=== PATIENT | male | born 1945 | race Caucasian/White ===

== ENCOUNTER 2021-06-29 10:52 | Inpatient (IN) | payer OTHER ==
[~2021-06-29] VITALS: Ht 175.3 cm; Wt 82.1 kg
--- NOTE | 2021-06-29 11:10 | NUR ---
PT BIB EMS FOR WEAKNESS X 1 WEEK. PT WAS FOUND BY EMS TO BE 88% ON ROOM AIR. PT PLACED ON 6 LITERS O2. FSGB PER EMS WAS 296. PT HAS DMII. PT RESTING IN [facility]. CONNECTED TO ALL MONITORS.
[2021-06-29] MEDS ORDERED: SODIUM CHLORIDE FLUSH 10ML SYR IVF ONE (11:30)
[2021-06-29 11:38] LABS: BASOPHILS % (AUTO) 0 % (0-1); EOSINOPHILS % (AUTO) 0 % (1-7); LYMPHOCYTES % (AUTO) 2 % (22-44); MEAN CORPUSCULAR HEMOGLOBIN 33.9 pg (27.5-34.5); MEAN CORPUSCULAR HGB CONC 33.5 g/dL (33.2-36.2); MONOCYTES % (AUTO) 4 % (2-9); NEUTROPHILS % (AUTO) 94 % (42-75); PLATELET COUNT 364 x10^3/uL (130-400); RED BLOOD COUNT 3.33 x10^6/uL (4.38-5.82); RED CELL DISTRIBUTION WIDTH 12.8 % (9.4-14.8)
[2021-06-29 11:45] LABS: ALANINE AMINOTRANSFERASE 114 U/L (12-78); ALBUMIN 2.8 g/dL (3.4-5.0); ANION GAP 15 mmol/L (5-15); CALCIUM 9.2 mg/dL (8.5-10.1); CHLORIDE 106 mmol/L (98-107)
[2021-06-29 11:49] LABS: ALKALINE PHOSPHATASE 102 U/L (45-117); BILIRUBIN,TOTAL 1.2 mg/dL (0.2-1.0); TOTAL PROTEIN 6.9 g/dL (6.4-8.2)
[2021-06-29] MEDS ORDERED: SODIUM CHLORIDE 0.9% 1,000ML IVBOLUS ONE (12:00)
[2021-06-29] MEDS ORDERED: PLEASE ENTER ALLERGIES MC SCH (12:00)
[2021-06-29] MEDS ORDERED: FUROSEMIDE 40 MG/4 ML IVPush ONE (12:30)
[2021-06-29] MEDS ORDERED: FUROSEMIDE 40 MG/4 ML ONE (12:57)
[2021-06-29] MEDS ORDERED: AZITHROMYCIN 500 MG in SODIUM CHLORIDE 0.9% 250 ML IVPB ONE (13:00)
[2021-06-29] MEDS ORDERED: CEFTRIAXONE 1,000 MG in DEXTROSE 5% 50 ML IVPB ONE (13:00)
[2021-06-29 13:12] LABS: PH, VENOUS 7.207 pH (7.320-7.420)
--- NOTE | 2021-06-29 13:13 | NUR ---
abx adm after blood cultures x 2 drawn. delay in abx adm due to lab having difficult time drawing blood
[2021-06-29 13:43] LABS: ACETONE, SERUM Negative (Negative)
[2021-06-29] MEDS ORDERED: SODIUM CHLORIDE FLUSH 10ML SYR IVF PRN (14:00)
[2021-06-29] MEDS ORDERED: ONDANSETRON ODT 4 MG PO PRN (14:30)
[2021-06-29] MEDS ORDERED: FUROSEMIDE 20 MG/2 ML IV ONE (14:30)
[2021-06-29] MEDS ORDERED: ACETAMINOPHEN 325 MG TABLET PO PRN (14:30)
[2021-06-29] MEDS ORDERED: ONDANSETRON 2MG/ML, 2ML IVPush PRN (14:30)
[2021-06-29 16:29] VITALS: BP 95/61
[2021-06-29] MEDS: INSULIN LISPRO 100 UNITS/ML, PEN SQ-INSULIN SCH ×2 (16:47→20:12)
[2021-06-29] MEDS ORDERED: HEPARIN 5,000 UNITS/ML, 1ML IV ONE (17:00)
[2021-06-29] MEDS: HEPARIN 25,000 UNITS/250ML PMX 250 ML IV PRN (17:29)
[2021-06-29 19:27] VITALS: BP 93/58
[2021-06-29] MEDS: ATORVASTATIN 40 MG TABLET PO SCH (20:12)
[2021-06-30 00:09] LABS: MICROSCOPIC INDICATED
[2021-06-30 03:52] VITALS: BP 108/77
[2021-06-30 04:38] LABS: BASOPHILS % (AUTO) 0 % (0-1); EOSINOPHILS % (AUTO) 0 % (1-7); LYMPHOCYTES % (AUTO) 3 % (22-44); MEAN CORPUSCULAR HEMOGLOBIN 33.3 pg (27.5-34.5); MEAN CORPUSCULAR HGB CONC 33.6 g/dL (33.2-36.2); MEAN PLATELET VOLUME 8.8 fL (7.4-10.4); MONOCYTES % (AUTO) 4 % (2-9); NEUTROPHILS % (AUTO) 94 % (42-75); PLATELET COUNT 317 x10^3/uL (130-400); RED BLOOD COUNT 3.36 x10^6/uL (4.38-5.82)
[2021-06-30 04:46] LABS: ALANINE AMINOTRANSFERASE 806 U/L (12-78); ALBUMIN 2.5 g/dL (3.4-5.0); ANION GAP 9 mmol/L (5-15); CALCIUM 9.1 mg/dL (8.5-10.1); CHLORIDE 108 mmol/L (98-107); CREATININE 1.55 mg/dL (0.7-1.3)
[2021-06-30 04:54] LABS: ALKALINE PHOSPHATASE 164 U/L (45-117); BILIRUBIN,TOTAL 0.6 mg/dL (0.2-1.0); TOTAL PROTEIN 6.8 g/dL (6.4-8.2)
[2021-06-30] MEDS ORDERED: ASPIRIN 325 MG TABLET PO SCH (06:00)
[2021-06-30] MEDS: INSULIN LISPRO 100 UNITS/ML, PEN SQ-INSULIN SCH ×4 (07:00→20:56)
[2021-06-30 07:39] VITALS: BP 112/74
[2021-06-30] MEDS: HEPARIN 5,000 UNITS/ML, 1ML IV PRN ×2 (08:38→21:14)
[2021-06-30] MEDS: DEXAMETHASONE 4 MG/ML, 5ML IVPush SCH (12:00)
[2021-06-30] MEDS ORDERED: DEXAMETHASONE 4 MG/ML, 1ML ONE (12:54)
[2021-06-30 12:59] VITALS: BP 116/76
[2021-06-30] MEDS: CEFTRIAXONE 2,000 MG in DEXTROSE 5% 50 ML IV SCH (14:04)
[2021-06-30] MEDS: HEPARIN 25,000 UNITS/250ML PMX 250 ML IV PRN (17:42)
[2021-06-30] MEDS ORDERED: DILTIAZEM 5 MG/ML, 5ML IVPush PRN (19:30)
[2021-06-30 20:48] VITALS: BP 108/70
[2021-06-30] MEDS: ATORVASTATIN 40 MG TABLET PO SCH (20:55)
[2021-06-30] MEDS: CARVEDILOL 3.125 MG TABLET PO SCH (20:55)
[2021-06-30] MEDS ORDERED: GLYB2.5T2 PO (21:01)
[2021-06-30] MEDS ORDERED: FINA5TAB4 PO (21:01)
[2021-06-30] MEDS ORDERED: LISI20TA21 PO (21:01)
[2021-06-30] MEDS ORDERED: METF500T17 PO (21:01)
[2021-06-30] MEDS ORDERED: SIMV40TA20 PO (21:01)
[2021-07-01 01:46] VITALS: BP 94/63
[2021-07-01 03:11] LABS: BASOPHILS % (AUTO) 1 % (0-1); EOSINOPHILS % (AUTO) 0 % (1-7); LYMPHOCYTES % (AUTO) 1 % (22-44); MEAN CORPUSCULAR HEMOGLOBIN 32.8 pg (27.5-34.5); MEAN CORPUSCULAR HGB CONC 33.4 g/dL (33.2-36.2); MEAN PLATELET VOLUME 8.7 fL (7.4-10.4); MONOCYTES % (AUTO) 2 % (2-9); NEUTROPHILS % (AUTO) 95 % (42-75); PLATELET COUNT 336 x10^3/uL (130-400); RED BLOOD COUNT 3.29 x10^6/uL (4.38-5.82); RED CELL DISTRIBUTION WIDTH 12.9 % (9.4-14.8)
[2021-07-01 03:22] LABS: ALANINE AMINOTRANSFERASE 767 U/L (12-78); ALBUMIN 2.3 g/dL (3.4-5.0); ANION GAP 11 mmol/L (5-15); CALCIUM 9.2 mg/dL (8.5-10.1); CHLORIDE 107 mmol/L (98-107); CREATININE 1.42 mg/dL (0.7-1.3)
[2021-07-01 03:25] LABS: ALKALINE PHOSPHATASE 175 U/L (45-117); BILIRUBIN,TOTAL 0.6 mg/dL (0.2-1.0); TOTAL PROTEIN 6.4 g/dL (6.4-8.2)
[2021-07-01] MEDS: ASPIRIN 81 MG TABLET EC PO SCH (05:45)
[2021-07-01 07:00] VITALS: BP 104/68
[2021-07-01] MEDS ORDERED: DEXAMETHASONE 4 MG/ML, 1ML ONE (07:51)
[2021-07-01] MEDS: INSULIN LISPRO 100 UNITS/ML, PEN SQ-INSULIN SCH ×4 (08:02→22:08)
[2021-07-01] MEDS: DEXAMETHASONE 4 MG/ML, 5ML IVPush SCH (08:03)
[2021-07-01 09:41] LABS: FIO2 70 %; O2 FLOW 40 L/min
[2021-07-01] MEDS ORDERED: SPIRONOLACTONE 25 MG TABLET PO ONE (11:30)
[2021-07-01] MEDS ORDERED: FUROSEMIDE 20 MG/2 ML IV ONE (11:30)
[2021-07-01 13:37] VITALS: BP 109/68
[2021-07-01] MEDS: CEFTRIAXONE 2,000 MG in DEXTROSE 5% 50 ML IV SCH (13:37)
[2021-07-01] MEDS: HEPARIN 25,000 UNITS/250ML PMX 250 ML IV PRN (14:27)
[2021-07-01] MEDS ORDERED: INSULIN LISPRO 100 UNIT/ML, 3ML VIAL SQ-INSULIN ONE (19:00)
[2021-07-01 20:32] VITALS: BP 110/70
[2021-07-01] MEDS: CARVEDILOL 3.125 MG TABLET PO SCH (20:39)
[2021-07-01] MEDS: ATORVASTATIN 40 MG TABLET PO SCH (20:39)
[2021-07-01] MEDS ORDERED: INSULIN GLARGINE 100 UNITS/ML, PEN SQ-INSULIN SCH (21:00)
[2021-07-02 02:17] VITALS: BP 104/72
--- NOTE | 2021-07-02 05:14 | NUR ---
SCARLETT VALENTINE - Fall Risk Medication(s) present and receiving anticoagulants.
[2021-07-02] MEDS: ASPIRIN 81 MG TABLET EC PO SCH (05:18)
[2021-07-02 06:25] LABS: CHLORIDE 104 mmol/L (98-107)
[2021-07-02 06:30] LABS: ALANINE AMINOTRANSFERASE 571 U/L (12-78); ALKALINE PHOSPHATASE 205 U/L (45-117); ANION GAP 7 mmol/L (5-15); BILIRUBIN,TOTAL 0.4 mg/dL (0.2-1.0); CALCIUM 8.9 mg/dL (8.5-10.1); CREATININE 1.25 mg/dL (0.7-1.3); TOTAL PROTEIN 6.3 g/dL (6.4-8.2)
[2021-07-02] MEDS: HEPARIN 5,000 UNITS/ML, 1ML IV PRN (07:08)
[2021-07-02] MEDS ORDERED: DEXAMETHASONE 4 MG/ML, 1ML ONE (08:30)
[2021-07-02 08:42] VITALS: BP 108/66
[2021-07-02] MEDS: DEXAMETHASONE 4 MG/ML, 5ML IVPush SCH (08:44)
[2021-07-02] MEDS: INSULIN LISPRO 100 UNITS/ML, PEN SQ-INSULIN SCH ×2 (08:46→11:37)
[2021-07-02] MEDS ORDERED: APIXABAN 5 MG TABLET PO SCH (10:00)
[2021-07-02] MEDS ORDERED: APIXABAN 5 MG TABLET ONE (10:04)
== END 2021-07-02 12:34 | DRG 871 ==
LOC: ED 14:59 → EDBD 14:59 → EDIP 15:34 → 4WST 16:01 → 5SO 21:35
PROVIDERS: ADMIT Internal Medicine; ATTEND Internal Medicine
DX: A41.9 Sepsis, unspecified organism (principal); J12.82 Pneumonia due to coronavirus disease 2019; J15.9 Unspecified bacterial pneumonia; J96.01 Acute respiratory failure with hypoxia; I50.23 Acute on chronic systolic (congestive) heart failure; I21.4 Non-ST elevation (NSTEMI) myocardial infarction; U07.1 COVID-19; D68.69 Other thrombophilia; I13.0 Hypertensive heart and chronic kidney disease with heart failure and stage 1 through stage 4 chronic kidney disease, or unspecified chronic kidney disease; I42.9 Cardiomyopathy, unspecified; N17.9 Acute kidney failure, unspecified; N39.0 Urinary tract infection, site not specified; E11.22 Type 2 diabetes mellitus with diabetic chronic kidney disease; I44.1 Atrioventricular block, second degree; E87.5 Hyperkalemia; I27.20 Pulmonary hypertension, unspecified; I48.0 Paroxysmal atrial fibrillation; N18.30 Chronic kidney disease, stage 3 unspecified; N40.0 Benign prostatic hyperplasia without lower urinary tract symptoms; R65.20 Severe sepsis without septic shock; E78.5 Hyperlipidemia, unspecified; Z66 Do not resuscitate; Z82.49 Family history of ischemic heart disease and other diseases of the circulatory system; Z87.891 Personal history of nicotine dependence
CPT/HCPCS: 36415; 36600; 71045; 80053; 81001; 82010; 82803; 82962; 83036; 83605; 83880; 84145; 84484; 85025; 85520; 87040; 87086; 93005; 93306; 96361; 96374; G0378; J0456; J0696; J1100; J1644; J1940; U0005; J1815; J7030; J7050; U0003